=== PATIENT | female | born 1945 | race Caucasian/White ===

== ENCOUNTER 2022-07-22 12:40 | Inpatient (IN) | payer MEDICARE, OTHER ==
[~2022-07-22] VITALS: Wt 81.6 kg
[~2022-07-22 12:40] MED LIST: ALBUTEROL2.5 MG/0.5 INH; AMOXICILLIN500 M2 PO; AMOXICILLIN500 M3 PO; ARTIFICIAL TEAR1512 OP; ASPIRIN ADULT L81 M2 PO; BENZTROPINE ME0.5 MG PO; CIPRO500 MG PO; CLOTRIMAZOLE45 G1 T; COGENTIN0.5 MG PO; COGENTIN2 MG/2 ML IM; COLACE100 MG PO; DULCOLAX5 M1 PO; EXELON1 EAC2 T; EXELON13.3 MG/21 T; EXELON9.5 MG/24 TD; GEODON20 MG IM; HALDOL DEC50 MG/1 ML IM; HALOPERIDO100 MG/1 M IM; HALOPERIDOL100 MG/M1 IM; IBUPROFEN600 MG PO; INVEGA SUSTENN156 MG IM; MAG-AL PLUS 3030 ML PO; MEMANTINE HCL10 MG PO; MIRTAZAPINE15 M2 PO; MOM30 M1 PO; NAMENDA10 MG PO; PROTONIX40 MG PO; PURALUBE OPHTHAL1 GM OP; REMERON15 M2 PO; RIVASTIGMINE1 EAC2 T; ROZEREM8 MG PO; SODIUM BICARBO650 MG PO; Synthroid,Levo25 MCG PO; THE MEDICINE SH10 M1 PO; TRAZADONE HYDR100 MG PO; TRINATAL RX 11 EACH PO; TYLENOL325 M1 PO; VIBRA-TAB100 MG PO; VISTARIL25 MG PO; VITAMIN D50000 I3 PO; VRAYLAR3 MG PO; ZOFRAN4 MG PO; ZOFRAN4 MG SL; [UNRECOGNIZED DRUG - OTHER] PO
[2022-07-22 12:59] VITALS: BP 127/74
[2022-07-22 13:32] LABS: BASO % 0.6 % (0.0-1.0); EOS # 0.2 10*3/uL (0.0-0.4); EOS % 2.4 % (1.0-4.0); HEMATOCRIT 34.6 % (37.0-47.0); LYMPH # 2.2 10*3/uL (1.3-4.4); LYMPH % 34.1 % (27.0-41.0); MEAN CELL VOLUME 92.8 fl (81.0-99.0); MEAN CORPUSCULAR HGB 28.4 pg (27.0-31.0); MEAN CORPUSCULAR HGB CONC 30.6 g/dl (33.0-37.0); MEAN PLATELET VOLUME 11.6 fl (9.6-12.3); MONO # 0.5 10*3/uL (0.1-1.0); MONO % 8.6 % (3.0-9.0); NEUT # 3.4 10*3/uL (2.3-7.9); PLATELET COUNT AUTOMATED 243 10*3/uL (130-400); RED BLOOD COUNT 3.73 10*6/uL (4.10-5.10); RED CELL DISTRI WIDTH 15.9 % (0-14.5); WHITE BLOOD COUNT 6.3 10*3/uL (4.8-10.8)
[2022-07-22 13:48] LABS: ALKALINE PHOSPHATASE 55 U/L (46-116); BUN 43 mg/dl (9-23); CHLORIDE 111 mmol/L (98-107); POTASSIUM 4.8 mmol/L (3.4-5.1); TOTAL PROTEIN 6.5 gm/dL (6.0-8.0)
[2022-07-22 13:49] LABS: SGPT/ALT < 7 U/L (10-49)
[2022-07-22 14:06] LABS: BILIRUBIN Negative (Negative); BLOOD Negative (Negative); CLARITY Clear (Clear); COLOR Yellow (Yellow); GLUCOSE Negative (Negative); KETONE Negative (Negative); LEUKO ESTERASE Trace (Negative); NITRITE Negative (Negative); UROBILINOGEN 0.2 E.U./dl (0.0-1.0)
[2022-07-22 14:14] LABS: URINE AMPHETAMINES Negative (1000ng/ml); URINE BARBITURATES Negative (200ng/ml); URINE BENZODIAZEPINES Negative (200ng/ml); URINE CANNABINOIDS (THC) Negative (50ng/ml); URINE COCAINE Negative (300ng/ml); URINE METHADONE Negative (300ng/ml); URINE OPIATES Negative (300ng/ml); URINE PHENCYCLIDINE Negative (25ng/ml)
[2022-07-22 14:30] LABS: BACTERIA 1+; RBC 0-2 rbc/hpf (0-2)
[2022-07-22 14:36] LABS: ETHYL ALCOHOL < 3.0 mg/dl (<3)
[2022-07-22 15:39] VITALS: BP 141/77
[2022-07-22] MEDS ORDERED: VRAYLAR1.5 MG PO (17:11)
[2022-07-22] MEDS ORDERED: IBUPROFEN400 MG PO (17:12)
[2022-07-22] MEDS ORDERED: KEPPRA XR500 MG PO (17:13)
[2022-07-22 20:00] VITALS: BP 128/69
[2022-07-23 07:48] VITALS: BP 141/63
[2022-07-23 08:01] LABS: THYROID STIM HORMONE (HS) 0.19 uIU/ml (0.550-4.780)
[2022-07-23 09:19] LABS: VITAMIN D, 25-HYDROXY 37.5 ng/mL (30-100)
[2022-07-23 20:00] VITALS: BP 118/64
[2022-07-24 08:00] VITALS: BP 130/92
[2022-07-24 20:00] VITALS: BP 115/68
[2022-07-25 07:42] VITALS: BP 109/54
[2022-07-25 20:00] VITALS: BP 138/60
[2022-07-26 08:00] VITALS: BP 129/68
[2022-07-26 20:00] VITALS: BP 136/80
[2022-07-27 08:00] VITALS: BP 132/70
[2022-07-27 20:00] VITALS: BP 136/82
[2022-07-28 07:24] VITALS: BP 117/54
[2022-07-28] MEDS ORDERED: RIVASTIGMINE1 EAC2 T (10:16)
[2022-07-28] MEDS ORDERED: VRAYLAR3 MG PO (10:16)
[2022-07-28] MEDS ORDERED: MIRTAZAPINE15 M2 PO (10:16)
[2022-07-28] MEDS ORDERED: MEMANTINE HCL10 MG PO (10:16)
[2022-07-28 20:00] VITALS: BP 123/58
[2022-07-29 07:33] VITALS: BP 106/57
== END 2022-07-29 11:55 | DRG 885 ==
LOC: ED 12:40 → 3N 16:10
PROVIDERS: Emergency Medicine; ADMIT Psychiatry & Neurology Psychiatry; ATTEND Psychiatry & Neurology Psychiatry
DX: F31.30 Bipolar disorder, current episode depressed, mild or moderate severity, unspecified (principal); N18.32 Chronic kidney disease, stage 3b; D64.9 Anemia, unspecified; N32.81 Overactive bladder; Z20.822 Contact with and (suspected) exposure to COVID-19; Z66 Do not resuscitate; M19.90 Unspecified osteoarthritis, unspecified site; E87.8 Other disorders of electrolyte and fluid balance, not elsewhere classified; E55.9 Vitamin D deficiency, unspecified; F20.9 Schizophrenia, unspecified; E21.3 Hyperparathyroidism, unspecified; I12.9 Hypertensive chronic kidney disease with stage 1 through stage 4 chronic kidney disease, or unspecified chronic kidney disease; F41.9 Anxiety disorder, unspecified; Z88.8 Allergy status to other drugs, medicaments and biological substances; Z86.16 Personal history of COVID-19; Z78.9 Other specified health status